=== PATIENT | male | born 1990 | race Caucasian/White ===

== ENCOUNTER 2022-08-16 17:54 | Emergency (ER) | payer MEDICAID, SELFPAY ==
[2022-08-16 18:00] VITALS: BP 141/97; PULSE 106; RESP 16; TEMP 36.6; O2SAT 96; BMI 33.2
--- NOTE | 2022-08-16 18:28 | CRLHL7_ITS ---
For Patients: As a result of the Century Cures Act, medical imaging exams and procedure reports are released immediately into your electronic medical record. You may view this report before your referring provider. If you have questions, please contact your health care provider. INDICATION: Abdominal and left flank pain. TECHNIQUE: CT abdomen and pelvis acquired with intravenous contrast, 100 mL of Isovue 370. Coronal and sagittal reformats. COMPARISON: None available. FINDINGS: The imaged lower chest demonstrates a small-moderate hiatal hernia. Normal liver contour. No suspicious hepatic lesion. Portal vein is patent. No biliary dilatation. The gallbladder, pancreas, spleen, and adrenals are unremarkable. Symmetric renal enhancement. No hydronephrosis bilaterally. Unremarkable bladder and prostate. The bowel appears normal in caliber and enhancement diffusely. No free air, free fluid, focal collection, or lymphadenopathy. Normal caliber abdominal aorta. Major branch vessels patent. No suspicious osseous lesion. IMPRESSION: No acute findings or CT correlate for abdominal pain identified. Dictated by Misha Carpio MD @ 08/16/2022 7:03:05 PM Please note that all CT scans at this facility use dose modulation, iterative reconstruction, and/or weight-based dosing when appropriate to reduce radiation dose to as low as reasonably achievable. Dictated by: Misha Carpio MD @ 08/16/2022 19:03:09 (Electronically Signed)
--- NOTE | 2022-08-16 18:29 | ED_ITS ---
HPI - Abdominal Pain General Chief Complaint: Abdominal Pain Stated Complaint: Constipation,Flank Throbbing Pain,Xray show backup Time Seen by Provider: 08/16/22 18:08 History of Present Illness HPI narrative: This 32-year-old male comes in with abdominal pain that started almost a week ago. He states that the pain has been coming and going for the most part but sometimes is rather constant over the course of a day or more. Earlier today he had very intense pain and now currently he is pain is quite minimal. He does not report any fevers. He was in he stings for an evaluation of these same symptoms a couple days ago. He had a x-ray of his abdomen and lab work done. He started taking MiraLax cause there was evidence of constipation. He states that he has been having some small bowel movements but continues to have episodes of pain is just now described. Related Data Home Medications Medication Instructions Recorded Confirmed Miralax 08/16/22 Prilosec 08/16/22 Allergies Allergy/AdvReac Type Severity Reaction Status Date / Time No Known Drug Allergies Allergy Verified 08/16/22 18:40 Review of Systems Status of ROS Reports: 10 or more systems reviewed and unremarkable except as noted in History and below Narrative Constitutional: No fevers, no weight gain or loss. Eyes: No discharge. No vision changes. HENT: No congestion, no sore throat, no ear pain. Cardiovascular: No chest pain, no palpitations. Respiratory: No shortness of breath, no wheezes, no cough. Gastrointestinal: Diffuse abdominal pain. No vomiting or diarrhea. He reports constipation and states that he may have generalized constipation for the most part over much of his life. Genitourinary: No dysuria, no hematuria. Musculoskeletal: Normal range of motion. Skin: No rashes, no pruritis. Neurological: No dizziness, weakness, sensory change, speech change. Endo/Heme/Allergies: No bruising or bleeding. No polydipsia. Pysch: no suicidality, no anxiety, no insomnia. All other systems reviewed and are negative. PFSH PFS Social History Smoking Status: Former smoker How often do you have a drink containing alcohol: 4 or more times a week How many standard drinks containing alcohol do you have on a typical day: 3 or 4 How often do you have six or more drinks on one occasion: Daily or almost daily AUDIT-C Alcohol total score: 9 Non-prescribed substance use: denies use Exam Narrative: Exam Narrative: Constitutional: Well-developed, well-nourished, no acute distress. HEENT: Normocephalic, atraumatic. Neck: Normal range of motion. Nontender. Supple. Heart: Regular. No murmurs. Normal rate. Intact distal pulses. Lungs: Clear to auscultation. No chest discomfort. No wheezes, rhonchi, or rales. Abdomen: Normal bowel sounds. Mild diffuse tenderness. No rebound tenderness. Genitalia: Deferred. Back: No midline tenderness. Normal range of motion. Extremities: Normal range of motion. No injury. Skin: Intact. No rash. Warm. No erythema or pallor. Neurologic: No altered sensation. No weakness. Alert and oriented. Psychiatric: No suicidality. No anxiety or depression. No insomnia. Nursing notes and vitals signs are reviewed. Const: Vital Signs, click to edit/add: Vital Signs - 24 hr 08/16/22 18:00 Temperature 97.9 F Pulse Rate [Left P ulse Oximeter] 106 H Respiratory Rate 16 Blood Pressure [Ri ght Upper Arm] 141/97 H Pulse Oximetry 96 Oxygen Delivery Me thod Room Air Course Vital Signs Vital signs: Initial Vital Signs Temperature 97.9 F 08/16/22 18:00 Temperature Source Temporal Artery Scan 08/16/22 18:00 Pulse Rate 106 H 08/16/22 18:00 Respiratory Rate 16 08/16/22 18:00 Blood Pressure 141/97 H 08/16/22 18:00 Blood Pressure Mean 111 08/16/22 18:00 Blood Pressure Position Supine 08/16/22 18:00 Pulse Oximetry 96 08/16/22 18:00 Oxygen Delivery Method 08/16/22 18:00 Vital Signs Temperature 97.9 F 08/16/22 18:00 Pulse Rate 106 H 08/16/22 18:00 Respiratory Rate 16 08/16/22 18:00 Blood Pressure 141/97 H 08/16/22 18:00 Pulse Oximetry 96 08/16/22 18:00 Oxygen Delivery Method 08/16/22 18:00 Temperature 97.9 F 08/16/22 18:00 Pulse Rate 106 H 08/16/22 18:00 Respiratory Rate 16 08/16/22 18:00 Blood Pressure 141/97 H 08/16/22 18:00 Pulse Oximetry 96 08/16/22 18:00 Oxygen Delivery Method 08/16/22 18:00 MDM - Abdominal Pain MDM Narrative Medical decision making narrative: This patient comes in with episodes of rather intense abdominal pain but sometimes also no pain at all. He was told a couple days ago that he had constipation. He comes in here with recurrent sometimes severe pain but currently does not have any pain. A CT scan of the abdomen and pelvis is acquired which shows no acute findings. He does not have any particular findings of constipation incidentally. Lab results also returned with reassuring results. These are communicated with the patient who is himself reassured. He is taking Prilosec daily. I advised him to use fiber additive. I did also provide a prescription for Toradol. Lab Data Labs: Lab Results 08/16/22 08/16/22 Range/Units 18:39 18:39 WBC 11.79 H (4.50-11.00) K/uL RBC 4.95 (4.30-5.90) m/uL Hgb 14.9 (13.5-17.5) gm/dL Hct 43.4 (37.0-53.0) % MCV 88 (80-100) fL MCH 30 (26-34) pg MCHC 34 (32-36) gm/dL RDW Coeff of Jennifer 11.6 (11.5-15.5) % Plt Count 330 (140-440) K/uL Neut % (Auto) 75.3 H (42.0-72.0) % Lymph % (Auto) 17.6 L (20-44) % [place] % (Auto) 6.1 (0.0-11.0) % Eos % (Auto) 0.4 (0.0-7.0) % Baso % (Auto) 0.3 (0.0-3.0) % Neut # (Auto) 8.90 H (1.7-7.0) K/uL Lymph # (Auto) 2.10 (0.90-2.90) K/uL [place] # (Auto) 0.70 (0.00-0.90) K/UL Eos # (Auto) 0.00 (0.00-0.50) K/uL Baso # (Auto) 0.00 (0.00-0.30) K/uL Abs Immat Gran (auto) 0.00 (0.00-0.30) K/uL Imm/Tot Granulo (auto) 0.3 % Sodium 141 (135-149) mmol/L Potassium 3.8 (3.6-5.1) mmol/L Chloride 103 (96-114) mmol/L Carbon Dioxide 28 (20-32) mmol/L BUN 23 (5-24) mg/dL Creatinine 1.0 (0.5-1.5) mg/dL Estimated Creat Clear 97.31 Estimated GFR 101 ml/min Glucose 90 (60-115) mg/dL Calcium 9.3 (8.4-10.6) mg/dL Imaging Data CT scan - abdomen: Radiologist's impression: FINDINGS: The imaged lower chest demonstrates a small-moderate hiatal hernia. Normal liver contour. No suspicious hepatic lesion. Portal vein is patent. No biliary dilatation. The gallbladder, pancreas, spleen, and adrenals are unremarkable. Symmetric renal enhancement. No hydronephrosis bilaterally. Unremarkable bladder and prostate. The bowel appears normal in caliber and enhancement diffusely. No free air, free fluid, focal collection, or lymphadenopathy. Normal caliber abdominal aorta. Major branch vessels patent. No suspicious osseous lesion. IMPRESSION: No acute findings or CT correlate for abdominal pain identified. Discharge Plan Discharge Clinical Impression: Abdominal pain Patient Disposition: Home, Self-Care Condition: Stable Additional Instructions: Take medication as needed and indicated. Follow up with MD or return if worsening. Prescriptions: No Action Prilosec Miralax Follow Up/Referrals: Provider,Not a Local [Primary Care Provider] - Stand Alone Forms: [employer] Info Instructions
[2022-08-16 18:49] LABS: Basophils Percent Auto 0.3 % (0.0-3.0); Eosinophils Percent Auto 0.4 % (0.0-7.0); Hematocrit 43.4 % (37.0-53.0); Hemoglobin* 14.9 gm/dL (13.5-17.5); Immature Granulocytes Pct Auto 0.3 %; Lymphocytes Percent Auto 17.6 % (20-44); Mean Corpuscular HGB Conc 34 gm/dL (32-36); Mean Corpuscular Hemoglobin 30 pg (26-34); Mean Corpuscular Volume 88 fL (80-100); Monocytes Percent Auto 6.1 % (0.0-11.0); Neutrophils Percent Auto 75.3 % (42.0-72.0); Platelet Count* 330 K/uL (140-440); RDW Coefficient of Variation % 11.6 % (11.5-15.5); Red Blood Count 4.95 m/uL (4.30-5.90); White Blood Count* 11.79 K/uL (4.50-11.00)
[2022-08-16 18:56] LABS: Slide Review Reflex No
[2022-08-16 19:02] LABS: Chloride* 103 mmol/L (96-114); Potassium* 3.8 mmol/L (3.6-5.1); Sodium* 141 mmol/L (135-149)
[2022-08-16 19:05] LABS: Blood Urea Nitrogen* 23 mg/dL (5-24); Carbon Dioxide* 28 mmol/L (20-32); Est. Creatinine Clearance* 97.31; Estimated Glomerular Filt Rate 101 ml/min
[2022-08-16 19:06] LABS: Calcium* 9.3 mg/dL (8.4-10.6); Glucose* 90 mg/dL (60-115)
== END 2022-08-16 19:48 | disposition home or self-care (01) ==
PROVIDERS: Emergency Provider Emergency Medicine Emergency Medical Services
DX: R10.9 Unspecified abdominal pain (principal)
CPT/HCPCS: 36415; 74177; 80048; 85025; 99284; 99285; Q9967

== ENCOUNTER 2022-11-26 10:36 | Emergency (ER) | payer MEDICAID, SELFPAY ==
[2022-11-26 10:53] VITALS: BP 136/81; PULSE 120; RESP 18; TEMP 36.3; O2SAT 96; BMI 32.9
--- NOTE | 2022-11-26 12:12 | ED_ITS ---
HPI - General Adult General Chief complaint: Unspecified Complaint, Adult Stated complaint: L side face swollen Time Seen by Provider: 11/26/22 10:55 History of Present Illness HPI narrative: This 32-year-old male comes in reporting some altered sensation on the left side of his head and face after exercising today. He states that he ran 5 miles on the treadmill and then looked in the mirror afterwards in it seemed like the left side of his face was a bit swollen and more red than the right side. He also felt some funny sensation on the left side of the top part of his head. These symptoms have since resolved. He states that he made significant changes in his lifestyle 11 days ago. He recently got out of what he calls a toxic relationship and now has quit taking marijuana, quit alcohol, and quit using caffeine. 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 He does not report any visual changes but does have some floaters on occasion in his visual field. He does not have any exercise intolerance and otherwise is healthy. He states that he has noticed that his blood pressure has normalized since making these changes. Related Data Home Medications Medication Instructions Recorded Confirmed Prilosec 08/16/22 Allergies Allergy/AdvReac Type Severity Reaction Status Date / Time No Known Drug Allergies Allergy Verified 08/16/22 18:40 Review of Systems Status of ROS: Reports: 10 or more systems reviewed and unremarkable except as noted in History and below Narrative: Constitutional: No fevers, no weight gain or loss. Eyes: No discharge. No vision changes. HENT: No congestion, no sore throat, no ear pain. Cardiovascular: No chest pain, no palpitations. Respiratory: No shortness of breath, no wheezes, no cough. Gastrointestinal: No abdominal pain, no vomiting, no diarrhea. Genitourinary: No dysuria, no hematuria. Musculoskeletal: Normal range of motion. Skin: No rashes, no pruritis. Neurological: No dizziness, weakness, speech change. Temporary sensory changes on the left side of his face and head as described above. Endo/Heme/Allergies: No bruising or bleeding. No polydipsia. Pysch: no suicidality, no anxiety, no insomnia. All other systems reviewed and are negative. PFSH PFS Social History Smoking Status: Former smoker How often do you have a drink containing alcohol: 4 or more times a week How many standard drinks containing alcohol do you have on a typical day: 3 or 4 How often do you have six or more drinks on one occasion: Daily or almost daily AUDIT-C Alcohol total score: 9 Non-prescribed substance use: denies use Exam Narrative: Exam Narrative: Constitutional: Well-developed, well-nourished, no acute distress. HEENT: Normocephalic, atraumatic. Neck: Normal range of motion. Nontender. Supple. Heart: Regular. No murmurs. Normal rate. Intact distal pulses. Lungs: Clear to auscultation. No chest discomfort. No wheezes, rhonchi, or rales. Abdomen: Normal bowel sounds. Nontender. No rebound tenderness. Genitalia: Deferred. Back: No midline tenderness. Normal range of motion. Extremities: Normal range of motion. No injury. Skin: Intact. No rash. Warm. No erythema or pallor. Neurologic: No altered sensation. No weakness. Alert and oriented. No facial asymmetry. Tongue is midline. Dye Mixer strength is equal bilaterally. [id number] is normal. No pronator drift. Heel to cardenas is normal. Psychiatric: No suicidality. No anxiety or depression. No insomnia. Nursing notes and vitals signs are reviewed. Const: Vital Signs, click to edit/add: Vital Signs - 24 hr 11/26/22 10:53 Temperature 97.4 F L Pulse Rate [Right Pulse Oximeter] 120 H Respiratory Rate 18 Blood Pressure [Ri ght Upper Arm] 136/81 Pulse Oximetry 96 Oxygen Delivery Me thod Room Air Course Vital Signs Vital signs: Initial Vital Signs Temperature 97.4 F L 11/26/22 10:53 Temperature Source Temporal Artery Scan 11/26/22 10:53 Pulse Rate 120 H 11/26/22 10:53 Respiratory Rate 18 11/26/22 10:53 Blood Pressure 136/81 11/26/22 10:53 Blood Pressure Mean 99 11/26/22 10:53 Blood Pressure Position Sitting 11/26/22 10:53 Pulse Oximetry 96 11/26/22 10:53 Oxygen Delivery Method Room Air 11/26/22 10:53 Vital Signs Temperature 97.4 F L 11/26/22 10:53 Pulse Rate 120 H 11/26/22 10:53 Respiratory Rate 18 11/26/22 10:53 Blood Pressure 136/81 11/26/22 10:53 Pulse Oximetry 96 11/26/22 10:53 Oxygen Delivery Method Room Air 11/26/22 10:53 Temperature 97.4 F L 11/26/22 10:53 Pulse Rate 120 H 11/26/22 10:53 Respiratory Rate 18 11/26/22 10:53 Blood Pressure 136/81 11/26/22 10:53 Pulse Oximetry 96 11/26/22 10:53 Oxygen Delivery Method Room Air 11/26/22 10:53 Medical Decision Making MDM Narrative Medical decision making narrative: This patient arrives with concern about some temporary symptoms he encountered today. He does state that he has some anxiety regarding this and would prefer a CT scan of his head. It is reassuring with regard to his exam and vital signs. He did have initial tachycardia upon arrival but this is normalized. His neurologic exam is completely normal. CT imaging of his brain shows no acute findings. These are reassuring results for the patient. I encouraged him to continue with his lifestyle changes that are already starting to benefit him. It could be that he is having some symptoms with regard to those adjustments. At the time of discharge the patient appears safe for outpatient management. The treatment plan is reviewed along with written and verbal return precautions. Reasons to return and the importance of close followup were also reviewed. Imaging Data CT scan - head: Radiologist's impression: Unremarkable noncontrast head CT. Discharge Plan Discharge Clinical Impression: Paresthesias Patient Disposition: Home, Self-Care Condition: Stable Additional Instructions: Continue current plans. Use [id number] medicines as needed and directed. Follow up with MD or return if worsening. [facility]Referrals: Provider,Not a Local [Primary Care Provider] - Stand Alone Forms: [employer] Info Instructions
--- NOTE | 2022-11-26 12:12 | CRLHL7_ITS ---
For Patients: As a result of the Century Cures Act, medical imaging exams and procedure reports are released immediately into your electronic medical record. You may view this report before your referring provider. If you have questions, please contact your health care provider. INDICATION: Paresthesias TECHNIQUE: CT head without contrast. COMPARISON: None FINDINGS: CSF spaces: Within normal limits for age. Brain parenchyma: The cabello-white differentiation is normal. No sign of mass, hemorrhage, or midline shift. Skull base and calvarium: Bilateral maxillary sinus mucosal thickening. The visualized orbits are grossly unremarkable. No skull fractures. IMPRESSION: Unremarkable noncontrast head CT. Please note that all CT scans at this facility use dose modulation, iterative reconstruction, and/or weight-based dosing when appropriate to reduce radiation dose to as low as reasonably achievable. Dictated by Agustín Aparicio MD @ 11/26/2022 12:40:00 PM (Electronically Signed)
== END 2022-11-26 13:00 | disposition home or self-care (01) ==
PROVIDERS: Emergency Provider Emergency Medicine Emergency Medical Services
DX: R20.2 Paresthesia of skin (principal)
CPT/HCPCS: 70450; 99283; 99284

== ENCOUNTER 2022-12-09 01:53 | Emergency (ER) | payer MEDICAID, SELFPAY ==
[2022-12-09 02:00] VITALS: BP 142/96; PULSE 97; RESP 18; TEMP 36.6; O2SAT 98; BMI 32.9
[2022-12-09 02:19] VITALS: O2SAT 96
--- OUTSIDE RECORDS SUMMARY | 2022-12-09 02:25 | XMS_ITS | Continuity of Care Document ---
Author Name Unknown Organization [facility] Address [address] [address] [place] [address] Phone Care Team Providers Care Plastic Surgery Assistant Name Role Phone Chai HERNADEZ, Effie Unavailable Unavailable Allergies, Adverse Reactions, Alerts Substance Reaction Status Criticality No Known Allergies Active No Inform ation Medications Medication Instructions Dosage Effective Dates (start - stop) Status Comments Aleve 220 mg tablet take 2 Tablet by ora l route every 12 hours as needed 440 MG - Active Prilosec 20 mg capsule,delayed release take 2 capsule by oral route every day 30 minutes to 1 hour before a meal 40 MG - Active omeprazole 40 mg capsule,delayed release take 1 capsule by oral route 2 times every day before a meal 40 MG - Active Procedures Procedure Date Ugi Endo; Dx W/wo Collec Specm 17 Advance Directives Directive Yes / No Effective Date File Name No Information Encounters Encounter Description Practice Location Reason(s) For Visit Diagnoses Date Provider Providers Copied on Encounter [facility], [address] [address], [place], [place], [id number], [place] tel:[phone] [facility] Gastroesophageal reflux disease without esophagitisHiatal herniaGastro-esop hageal reflux disease without esophagitisDiaphr agmatic hernia without obstruction or gangrene 0 7 Chai Chou. [address] [facility], [facility] [address], [place], [place], [id number] , [place]. tel:[phone] Referring Provider: [place], [address] [place], [address]. tel:[phone] Family History Family Member Type Diagnosis Age At Onset No Information Payers Payer name Insurance type Covered alliance party ID Kath santiago(s) [place] [employer] [id number] Social History Type Description Quantity Date Captured Comments Alcohol Use Details Unknown Caffeine Use Details Unknown Tobacco Use Status No Information Smoking Status Light tobacco smoker Sex Male Vital Signs Date / Time: Height Weight BMI Pulse Rate Blood Pressure Temperature Respiratory Rate Body Surface Area Head Circumference Head Circ. Percentile Wt./Kimani. Percentile BMI percentile Pulse Ox Inhaled Ox 8:33 AM 66.00 in 94.330 kg (208.00 lbs) 33.6 0 kg/m eter (2) 79 /min 140/88 mm[Hg] 0.00 F 16 /min 97 % Chief Complaint And Reason For Visit No Information Reason For Referral Reason For Referral No Information Plan Of Treatment Date Type Action Status No Information History Of Present Illness Encounter Date Complaint History Of Prese nt Illness No Information Functional Status Date Functional Assessmen t No Information Instructions Date Instruction Additional Infor mation No Information Assessments Type Assessment Date assessment Gastroesophageal reflux disease without esophagitis Patient Care Teams Name Effective Dates (start - stop) Status Members No Information
[2022-12-09 02:32] LABS: Basophils Absolute Auto 0.01 K/uL (0.00-0.30); Basophils Percent Auto 0.2 % (0.0-3.0); Eosinophils Absolute Auto 0.11 K/uL (0.00-0.50); Eosinophils Percent Auto 1.9 % (0.0-7.0); Hematocrit 42.8 % (37.0-53.0); Hemoglobin* 14.6 gm/dL (13.5-17.5); Immature Granulocytes Abs Auto 0.04 K/uL (0.00-0.30); Immature Granulocytes Pct Auto 0.7 %; Lymphocytes Absolute Auto 1.87 K/uL (0.90-2.90); Lymphocytes Percent Auto 32.9 % (20-44); Mean Corpuscular HGB Conc 34 gm/dL (32-36); Mean Corpuscular Hemoglobin 30 pg (26-34); Mean Corpuscular Volume 89 fL (80-100); Monocytes Percent Auto 11.3 % (0.0-11.0); Neutrophils Absolute Auto 3.01 K/uL (1.7-7.0); Platelet Count* 268 K/uL (140-440); RDW Coefficient of Variation % 12.1 % (11.5-15.5); Red Blood Count 4.83 m/uL (4.30-5.90); White Blood Count* 5.68 K/uL (4.50-11.00)
[2022-12-09 02:34] LABS: Slide Review Reflex No
--- NOTE | 2022-12-09 02:36 | ED.GENADULT ---
HPI - General Adult General Date Seen: 12/09/22 Chief complaint: Arrhythmia/Palpitations Stated complaint: High BP Time Seen by Provider: 12/09/22 01:59 Source: patient Mode of arrival: ambulatory Limitations: no limitations History of Present Illness HPI narrative: Patient is a 32-year-old male who presents for evaluation of palpitations. He says that he was laying in bed when he felt like his heart started to race. He says he checked his pulse and it was over 100. He says that he felt he could see his pulse in his neck. Symptoms persisted through the drive to the ER but now seem to be resolved. He denies any stimulant use, says that he quit drinking a few weeks ago due to GI symptoms but has over the past week had alcohol couple of times including tonight. He does not smoke, denies any other substance use. He did not have any chest pain tonight, does say that his left arm felt sort of tingly on the drive in but he does boxing and he says that is not unusual for him. He felt a little lightheaded at home, no syncope. No shortness of breath. No other recent illness, no vomiting or diarrhea, black or bloody stools, fevers, etc.. General health is otherwise good. He has been told that his blood pressure is on the high side for several years. Related Data Home Medications Medication Instructions Recorded Confirmed Prilosec 08/16/22 omeprazole .ROUTE 12/09/22 Allergies Allergy/AdvReac Type Severity Reaction Status Date / Time No Known Drug Allergies Allergy Verified 08/16/22 18:40 Review of Systems Status of ROS: Reports: 10 or more systems reviewed and unremarkable except as noted in History and below PFSH PFS Surgical History Hx of laminectomy ?Z98.890 - Other specified postprocedural states (ICD-10) Social History Smoking Status: Former smoker How often do you have a drink containing alcohol: 4 or more times a week How many standard drinks containing alcohol do you have on a typical day: 3 or 4 How often do you have six or more drinks on one occasion: Daily or almost daily AUDIT-C Alcohol total score: 9 Non-prescribed substance use: denies use Exam Narrative: Exam Narrative: Vital signs as noted above. In general, an alert, well-appearing patient. Head: Normocephalic, atraumatic. Eyes: Pupils are equal reactive. Extraocular movements are full. Conjunctivae are normal. ENT: Mucous membranes are moist. Throat is normal. Neck: Supple without lymphadenopathy. Heart: Regular rate and rhythm. No murmur or rub. Lungs: Clear bilaterally. No increased work of breathing, crackles or wheezes. Abdomen: Soft and nontender. No organomegaly. Extremities: Well perfused. No edema. No calf tenderness. Pulses intact. Neurologic: Patient is alert and oriented to person and place. Speech is fluent. Face is symmetric. Moves all extremities equally. Affect: Normal. Skin: Warm and dry. Well perfused. Const: Vital Signs, click to edit/add: Vital Signs - 24 hr 12/09/22 02:00 12/09/22 02:19 Temperature 97.9 F Pulse Rate [Left P ulse Oximeter] 97 Respiratory Rate 18 Blood Pressure [Ri ght Upper Arm] 142/96 H Pulse Oximetry 98 96 Oxygen Delivery Me thod Room Air Documenting provider has reviewed patient's vital signs: yes Course Course Hospital Course: An EKG here shows a normal sinus rhythm, ventricular rate of 78 beats per minute. No acute ST segment changes. QT corrected is 426 milliseconds, AR is 184 milliseconds and there are no delta waves. He is maintained on the monitor here. Discussed with him that it is possible that he could have had an arrhythmia such as SVT or less likely atrial fibrillation at home, but it is also possible and I think more likely that he had sinus tachycardia, with possibly contributing some anxiety as he notes that he does tend to be a ?hypochondriac. In any case, there is no evidence of tachyarrhythmia here. I did check a couple of baseline labs, his white blood cell count is normal at 5.7, hemoglobin is 14.6. Electrolytes are normal, troponin is 0. He has remained in a normal sinus rhythm while here, feeling well at this time. We did place a Holter monitor, I have asked him to make a primary care appointment to follow up on those results. In the meantime, if he has severe symptoms, pulse greater than 140, fainting, severe chest pain or shortness of breath, return to the emergency department. Vital Signs Vital signs: Initial Vital Signs Temperature 97.9 F 12/09/22 02:00 Temperature Source Temporal Artery Scan 12/09/22 02:00 Pulse Rate 97 12/09/22 02:00 Respiratory Rate 18 12/09/22 02:00 Blood Pressure 142/96 H 12/09/22 02:00 Blood Pressure Mean 111 12/09/22 02:00 Blood Pressure Position Sitting 12/09/22 02:00 Pulse Oximetry 98 12/09/22 02:00 Oxygen Delivery Method Room Air 12/09/22 02:00 Vital Signs Temperature 97.9 F 12/09/22 02:00 Pulse Rate 97 12/09/22 02:00 Respiratory Rate 18 12/09/22 02:00 Blood Pressure 142/96 H 12/09/22 02:00 Pulse Oximetry 98 12/09/22 02:00 Oxygen Delivery Method Room Air 12/09/22 02:00 Temperature 97.9 F 12/09/22 02:00 Pulse Rate 97 12/09/22 02:00 Respiratory Rate 18 12/09/22 02:00 Blood Pressure 142/96 H 12/09/22 02:00 Pulse Oximetry 96 12/09/22 02:19 Oxygen Delivery Method Room Air 12/09/22 02:00 Medical Decision Making Lab Data Labs: Lab Results 12/09/22 12/09/22 Range/Units 02:25 02:26 WBC 5.68 (4.50-11.00) K/uL RBC 4.83 (4.30-5.90) m/uL Hgb 14.6 (13.5-17.5) gm/dL Hct 42.8 (37.0-53.0) % MCV 89 (80-100) fL MCH 30 (26-34) pg MCHC 34 (32-36) gm/dL RDW Coeff of Jennifer 12.1 (11.5-15.5) % Plt Count 268 (140-440) K/uL Neut % (Auto) 53.0 (42.0-72.0) % Lymph % (Auto) 32.9 (20-44) % [place] % (Auto) 11.3 H (0.0-11.0) % Eos % (Auto) 1.9 (0.0-7.0) % Baso % (Auto) 0.2 (0.0-3.0) % Neut # (Auto) 3.01 (1.7-7.0) K/uL Lymph # (Auto) 1.87 (0.90-2.90) K/uL [place] # (Auto) 0.60 (0.00-0.90) K/UL Eos # (Auto) 0.11 (0.00-0.50) K/uL Baso # (Auto) 0.01 (0.00-0.30) K/uL Sodium 142 (135-149) mmol/L Potassium 3.9 (3.6-5.1) mmol/L Chloride 105 (96-114) mmol/L Carbon Dioxide 29 (20-32) mmol/L BUN 18 (5-24) mg/dL Creatinine 0.8 (0.5-1.5) mg/dL Estimated Creat Clear 121.64 Estimated GFR 119 ml/min Glucose 107 (60-115) mg/dL Calcium 9.1 (8.4-10.6) mg/dL POC Troponin I 0.00 L (0.01-0.04) ng/ml Discharge Plan Discharge Clinical Impression: Palpitations Patient Disposition: Home, Self-Care Condition: Improved Instructions: Heart Palpitations (DC) Additional Instructions: Holter monitor, primary care follow-up next week to discuss results. [phone] to schedule. If you have severe symptoms, fainting, heart rate over 140, chest pain, shortness of breath etcetera, return for re-evaluation. Prescriptions: No Action Prilosec omeprazole .ROUTE Follow Up/Referrals: Provider,Not a Local [Primary Care Provider] - Stand Alone Forms: [facility] Info Instructions
[2022-12-09 02:43] LABS: Chloride* 105 mmol/L (96-114); Sodium* 142 mmol/L (135-149)
[2022-12-09 02:44] LABS: Potassium* 3.9 mmol/L (3.6-5.1)
[2022-12-09 02:46] LABS: Carbon Dioxide* 29 mmol/L (20-32); Creatinine* 0.8 mg/dL (0.5-1.5); Est. Creatinine Clearance* 121.64; Estimated Glomerular Filt Rate 119 ml/min
[2022-12-09 02:47] LABS: Blood Urea Nitrogen* 18 mg/dL (5-24); Calcium* 9.1 mg/dL (8.4-10.6); Glucose* 107 mg/dL (60-115)
[2022-12-09 03:18] VITALS: BP 133/88; PULSE 77; RESP 18; O2SAT 97
--- NOTE | 2023-02-03 08:40 | ED.NURSE ---
Dr. Huber reviewed results and states results are normal. Contacted patient to review results. Pt instructed to establish primary care. Pt verbalizes understanding of need to establish primary care and given [facility] phone number.
== END 2022-12-09 03:19 | disposition home or self-care (01) ==
PROVIDERS: Emergency Provider Emergency Medicine
DX: R00.2 Palpitations (principal)
CPT/HCPCS: 36415; 80048; 84484; 85025; 93005; 93225; 93226; 94761; 99284

== ENCOUNTER 2023-05-27 16:25 | Emergency (ER) | payer MEDICAID, SELFPAY ==
[2023-05-27 16:30] VITALS: BP 131/94; PULSE 100; RESP 12; TEMP 36.1; O2SAT 96; BMI 31.6
--- NOTE | 2023-05-27 16:58 | ED.GENADULT ---
HPI - General Adult General Date Seen: 05/27/23 Chief complaint: Back Injury/Pain Stated complaint: back pain Time Seen by Provider: 05/27/23 16:42 Source: patient Mode of arrival: ambulatory Limitations: no limitations History of Present Illness HPI narrative: Patient is a 32-year-old male who presents with right periscapular pain which started about 45 minutes ago when he was at [employer] and twisted wrong. He has had pain in this area for quite some time, he tells me that he takes ibuprofen and muscle relaxers as needed, he says he has to had massages 3 times a week and goes to a chiropractor 2 times a week, but is here because he wants to get to the bottom of what is causing his pain. He says he had an MRI scheduled while back but then did not go, he was hoping we could do an MRI today. He does not have radicular pain. It feels better when he stretches it out, it feels worse with certain movements of his arm as well as with taking a deep breath although he is not short of breath and denies fever cough. He does have a history of depression anxiety, there is the history of substance abuse mentioned in the chart although he is quick to tell me that he is not a ?junkie and is not interested in pain medications. He is a former smoker, does not currently use any substances. Related Data Home Medications Medication Instructions Recorded Confirmed cyclobenzaprine 5 mg tablet 10 mg PO HS PRN 05/27/23 05/27/23 omeprazole 20 mg capsule,delayed 20 mg PO DAILY 05/27/23 05/27/23 release Allergies Allergy/AdvReac Type Severity Reaction Status Date / Time No Known Drug Allergies Allergy Verified 05/27/23 16:29 Review of Systems Status of ROS: Reports: 6 or more systems reviewed and unremarkable except as noted in History and below [facility] Medical History No significant past medical history Surgical History Hx of laminectomy ?Z98.890 - Other specified postprocedural states (ICD-10) Social History Smoking Status: Former smoker How often do you have a drink containing alcohol: 4 or more times a week How many standard drinks containing alcohol do you have on a typical day: 3 or 4 How often do you have six or more drinks on one occasion: Daily or almost daily AUDIT-C Alcohol total score: 9 Non-prescribed substance use: former substance user and marijuana (any form) Little interest or pleasure in doing things: more than half the days Feeling down, depressed, or hopeless: several days Exam Narrative: Exam Narrative: Vital signs reviewed In general, an alert, well-appearing male, he was stretching his right arm across his body when I went into the room, pacing. Normocephalic, atraumatic. Neck: Supple. Heart: Regular rate and rhythm Lungs: Clear, breath sounds equal. Back: He has some reproducible muscle tenderness along the edge of his scapula on the right. New line skin: Warm dry well perfused. Affect: Agitated. Const: Vital Signs, click to edit/add: Vital Signs - 24 hr 05/27/23 16:30 Temperature 97.0 F L Pulse Rate [Pulse Oximeter] 100 Respiratory Rate 12 Blood Pressure [Ri ght Upper Arm] 131/94 H Pulse Oximetry 96 Oxygen Delivery Me thod Room Air Documenting provider has reviewed patient's vital signs: yes Course Course ED Course: Given that this has been present for quite some time and is exacerbated today, I think this is much more likely to be musculoskeletal. Did discuss with him that we typically do not do MRI out of the ER for back pain and as he arrived at close to 5:00 p.m., discussed that we do not even have the option of MRI at this hour. He became fairly upset with me and fairly defensive, he seems to think that because I am not doing an MRI I do not believe that he is having symptoms. Tried to reassure him that I do think this is likely more due to muscle spasm than a radicular problem given his presentation, but it sounds as if he was planning to do an MRI through his primary doctor previously and they can certainly get that rescheduled. At 1 point he said he did not have an MRI scheduled and then he also said he has 1 scheduled next so not sure which is accurate. Recommended continued use of ibuprofen and/or Tylenol, cyclobenzaprine, physical therapy or massage may be helpful, ice or heat. Vital Signs Vital signs: Initial Vital Signs Temperature 97.0 F L 05/27/23 16:30 Temperature Source Temporal Artery Scan 05/27/23 16:30 Pulse Rate 100 05/27/23 16:30 Pulse Rhythm Regular 05/27/23 16:30 Respiratory Rate 12 05/27/23 16:30 Blood Pressure 131/94 H 05/27/23 16:30 Blood Pressure Mean 106 H 05/27/23 16:30 Blood Pressure Position Sitting 05/27/23 16:30 Pulse Oximetry 96 05/27/23 16:30 Oxygen Delivery Method Room Air 05/27/23 16:30 Vital Signs Temperature 97.0 F L 05/27/23 16:30 Pulse Rate 100 05/27/23 16:30 Respiratory Rate 12 05/27/23 16:30 Blood Pressure 131/94 H 05/27/23 16:30 Pulse Oximetry 96 05/27/23 16:30 Oxygen Delivery Method Room Air 05/27/23 16:30 Temperature 97.0 F L 05/27/23 16:30 Pulse Rate 100 05/27/23 16:30 Respiratory Rate 12 05/27/23 16:30 Blood Pressure 131/94 H 05/27/23 16:30 Pulse Oximetry 96 05/27/23 16:30 Oxygen Delivery Method Room Air 05/27/23 16:30 Discharge Plan Discharge Clinical Impression: Thoracic back pain Patient Disposition: Home, Self-Care Condition: Stable Instructions: Thoracic Pain (ED) Additional Instructions: I would recommend ibuprofen 400 mg plus Tylenol 1000 mg 3 times daily with food. You can use her muscle relaxer as needed. Physical therapy, massage etc. may be helpful. Ice and/or heat. Primary care follow-up to discuss rescheduling your MRI. Prescriptions: No Action cyclobenzaprine 5 mg tablet 10 mg PO HS PRN omeprazole 20 mg capsule,delayed release(DR/EC) 20 mg PO DAILY Follow Up/Referrals: Provider,Not a Local [Primary Care Provider] - Stand Alone Forms: [facility] Info Instructions
--- NOTE | 2023-05-27 17:16 | ED.NURSE ---
pt left without being seen or being given discharge information. Was unable to assess.
--- OUTSIDE RECORDS SUMMARY | 2023-05-27 17:31 | XMS_ITS | Continuity of Care Document ---
Author Name Unknown Organization [facility] Address [address] [place] [address] Phone Care Team Providers Care Human Resources Representative Name Role Phone Molly HERNADEZ, PhD, Emiliano Unavailable Unavai lable Advance Directives Directive Yes / No Effective Date File Name No Information Encounters Encounter Description Practice Location Reason(s) For Visit Diagnoses Date Provider Providers Copied on Encounter [facility], [address], [place], [place], [id number], [place] tel:[phone] [facility] No Information Molly Cummings. [facility], [address], [place], [address], [place]. tel:[phone] Family History Family Member Type Diagnosis Age At Onset No Information Payers Payer name Insurance type Covered libertarian ID Authoriza tion(s) No Information Social History Type Description Quantity Date Captured Comments Sex Male Smoking Status No Information Chief Complaint And Reason For Visit No Information Reason For Referral Reason For Referral No Information Plan Of Treatment Date Type Action Status Future Order: Radiology Order AP Lateral Cervical (APlatcerv), Ordered on: Ordered Future Order: Radiology Order F/ E Cervical (F/Ecervical), Ordered on: Ordered History Of Present Illness Encounter Date Complaint History Of Prese nt Illness No Information Functional Status Date Functional Assessmen t No Information Instructions Date Instruction Additional Infor mation No Information Assessments Type Assessment Date No Information Patient Care Teams Name Effective Dates (start - stop) Status Members No Information
--- OUTSIDE RECORDS SUMMARY | 2023-05-27 17:31 | XMS_ITS | Continuity of Care Document ---
Author Name Unknown Organization [facility] Address [address] [place] [address] Phone Care Team Providers Care Store Planner Name Role Phone Leonardo Bautista DO Unavailable Unavailable Advance Directives Directive Yes / No Effective Date File Name No Information Encounters Encounter Description Practice Location Reason(s) For Visit Diagnoses Date Provider Providers Copied on Encounter [facility], [address], [place], [address], [place] tel:[phone] [facility], No Information 2 Michele Patterson. [facility] [address], [place], [address], [place]. tel:[phone] Family History Family Member Type Diagnosis Age At Onset No Information Payers Payer name Insurance type Covered democrat ID Authoriza tion(s) No Information Social History Type Description Quantity Date Captured Comments Sex Male Smoking Status No Information Chief Complaint And Reason For Visit No Information Reason For Referral Reason For Referral No Information History Of Present Illness Encounter Date Complaint History Of Prese nt Illness No Information Functional Status Date Functional Assessmen t No Information Instructions Date Instruction Additional Infor mation No Information Assessments Type Assessment Date No Information Patient Care Teams Name Effective Dates (start - stop) Status Members No Information
--- OUTSIDE RECORDS SUMMARY | 2023-05-27 17:31 | XMS_ITS | Continuity of Care Document ---
Author Name Unknown Organization [facility] Address [address] [address] [place] [address] Phone Care Team Providers Care Bistro Server Name Role Phone Chai HERNADEZ, Effie Unavailable [...] Diagnoses Date Provider Providers Copied on Encounter [facility], [address] [address], [place], [place], [id number], [place] tel:[phone] [facility] Gastroesophageal reflux disease without esophagitisHiatal herniaGastro-esop hageal reflux disease without esophagitisDiaphr agmatic hernia without obstruction or gangrene 0 7 Chai Chou. [address] [facility], [facility] [address], [place], [place], [id number] , [place]. tel:[phone] Referring Provider: [place], [address] [place], [address]. tel:[phone] Family History Family Member Type Diagnosis Age At Onset No Information Payers Payer name Insurance type Covered libertarian ID Kath santiago(s) [place] [employer] [id number] Social History Type Description Quantity Date Captured [...]
== END 2023-05-27 17:28 | disposition home or self-care (01) ==
PROVIDERS: Emergency Provider Emergency Medicine
DX: M54.6 Pain in thoracic spine (principal); X50.1XXA Overexertion from prolonged static or awkward postures, initial encounter
CPT/HCPCS: 99283

== ENCOUNTER 2023-10-27 00:19 | Emergency (ER) | payer MEDICAID, SELFPAY ==
--- OUTSIDE RECORDS SUMMARY | 2023-10-27 00:24 | XMS_ITS | Clinical Summary ---
Author Name Unknown Organization [facility] Address [facility] [place] [address] Care Team Providers Care Shuttle Fixer Name Role Phone No Ref-Primary, Physician Primary Care Provider Allergies No known active allergies Medications Medication Sig Dispensed Refills Start Date End Date Status omeprazole (PRILOSEC) [address] capsule Take 40 mg by mouth 0 Active ondansetron (ZOFRAN ODT) 4 MG ODT tab Take 1 tablet (4 mg) by mouth every 6 hours as needed for nausea 15 tablet 0 01/02/2021 Active Active Problems Problem Noted Date Diagnosed Date Psoriatic arthritis 09/07/2019 History of lumbar laminectomy 01/10/2019 Psoriasis 08/10/2018 Immunizations Name Administration Dates Next Due HIB (PRP-T) 12/14/1989 HepB 12/25/1998,07/15/1998,06/03/1998 Historical DTP/aP 05/06/1994,12/14/1989,07/01/19 89,1988 Influenza (IIV3) PF 06/25/1999,07/15/1998,1996,07/20/1996 MMR 08/08/1997,08/23/1989 OPV, trivalent, live 05/06/1994,06/02/1990,07/01,1988 TD,PF 7+ (Tenivac) 06/25/1999 Social History Tobacco Use Types Packs/Day Years Used Date Smoking Tobacco: Former Cigarettes 1 Smokeless Tobacco: Never Alcohol Use Standard Drinks/Week Comments Yes 0 (1 standard drink = 0.6 oz pur e alcohol) PHQ-2 Answer Date Recorded PHQ-2 Score 0 09/07/2019 Adolescent Education Answer Date Record ed Getting School Help Needed Not on file 06/03 Sex and Gender Information Value Date Recorded Sex Assigned at Not on file Gender Identity Not on file Sexual Orientation Not on file Last Filed Vital Signs Vital Sign Reading Time Taken Comments Blood Pressure 152/105 01/02/2021 2:24 AM CDT Pulse 99 01/02/2021 2:24 AM CDT Temperature 36.8 ??C (98.2 ??F) 01/02/2021 2:24 AM CD T Respiratory Rate 16 01/02/2021 2:24 AM CDT Oxygen Saturation 97% 01/02/2021 2:24 AM CDT Inhaled Oxygen Concentration - - Weight 103.9 kg (229 lb 0.9 oz) 01/02/2021 2:24 AM CDT Height 167.6 cm (5' 6) 05/17/2020 2:12 AM CDT Body Mass Index 36.97 05/17/2020 2:12 AM CDT Plan of Treatment Health Maintenance Due Date Last Done Comments ADVANCE CARE PLANNING 1988 ANNUAL REVIEW OF HM ORDERS 1988 COVID-19 Vaccine (#1) 1988 YEARLY PREVENTIVE VISIT 11/14/1998 11/14/1997, 06/10 DTAP/TDAP/TD IMMUNIZATION (5 - Tdap) 06/26/1999 06/25/1999, 05/06/1994, 12/14/1989, Additional history exists HIV SCREENING 2003 HEPATITIS C SCREENING 2006 INFLUENZA VACCINE (#1) 2023 9, 06/25/1999, 07/15/1998, Additional history exists PHQ-2 (once per calendar year) 2023 09/07/2019 GLUCOSE 01/03/2024 01/02/2021, 05/17/2020 IPV IMMUNIZATION Completed 05/06/1994, , 07/01/1989, Additional history exists HEPATITIS B IMMUNIZATION Completed 999, 12/25/1998, 07/15/1998, Additional history exists HPV IMMUNIZATION Aged Out No longer e ligible based on patient's age to complete this topic MENINGITIS IMMUNIZATION Aged Out No l onger eligible based on patient's age to complete this topic Pneumococcal Vaccine: Pediatrics (0 to 5 Years) and At-Risk Patients (6 to 64 Years) Aged Out No longer eligible based on patient's age to complete this topic RSV MONOCLONAL ANTIBODY Aged Out No l onger eligible based on patient's age to complete this topic Care Teams Shuttle Fixer Relationship Specialty Start Date End Date No Ref-Primary, Physician PCP - General 09/05/19
--- OUTSIDE RECORDS SUMMARY | 2023-10-27 00:25 | XMS_ITS | Referral Summary ---
Author Name Unknown Organization [facility] Address [facility] [place] [address] Care Team Providers Care Ribbing Machine Operator Name Role Phone No Ref-Primary, Physician Primary [...] 05/17/2020 2:12 AM CDT Plan of Treatment Not on file Care Teams Ribbing Machine Operator Relationship Specialty Start Date End Date No Ref-Primary, Physician PCP - General 09/05/19
[2023-10-27 00:34] VITALS: BP 153/106; PULSE 101; RESP 20; TEMP 36.6; O2SAT 97; BMI 34.1
--- NOTE | 2023-10-27 00:58 | XR_ITS ---
Final Report Patient: BRENNA TAI Facility:?[facility] Patient ID:?[id number] Site Patient ID:?[id number]. Site :?1990 Study:?XRay Chest 2V-10/27/2023 1:13:04 AM Ordering Physician:HUGO Final Report: Indication: Chest pain, palpitations Technique: Two views of the chest Comparison: None Findings: No organized consolidation. No pneumothorax. No effusion. Cardiac silhouette is unremarkable. No acute osseous abnormality appreciated. site monitor overlies the left chest. Impression: No acute cardiopulmonary process detected. Dictated by Sal Connell MD @ 10/27/2023 1:14:58 AM (Electronic Signature)
--- NOTE | 2023-10-27 01:04 | ED.GENADULT ---
HPI - General Adult General Chief complaint: Chest Pain Stated complaint: Chest pain Time Seen by Provider: 10/27/23 00:36 Source: patient Mode of arrival: ambulatory Limitations: no limitations History of Present Illness HPI narrative: 33-year-old male presents the emergency department for evaluation of palpitations. This is been an ongoing issue for him, for more than a year. Reports that he had a Holter monitor performed last year that was essentially normal per his report though he states that he never got a thorough discussion of the results. He states that he has frequent feelings of a couple of irregular heart, pounding heartbeats at a time. It sounds as though this happened a little more likely in the evenings. He started having a few more than normal of these beats that were more pounding in nature at around 10:30 this evening, which is about 2 hours prior to arrival. No trauma or injury, no fever. Not associated with dizziness or shortness of breath. Events are not sustain but rather a few beats at a time and then will go back to normal and then sounds as though a few abnormal beats again. Denies anxiety. Did have 1 alcoholic beverage tonight. Reports that he does smoke marijuana daily but that is unchanged. He has had no new medications. He has no allergies. No fever or recent significant illness. States that he has had blood work to investigate this in the past that was unrevealing. He recently started seeing a new provider in [place]. Provider recommended that the Holter monitor be repeated and he currently is wearing this now. Blood work was not repeated, it does not sound as though he has ever had a stress test or echo. His symptoms are not exertional. I reviewed our records and see that he had appropriate blood work performed about 10 months ago, all reassuring. EKG was normal at that time and he did have a Holter monitor placed. The interpretation of this shows a few PVCs, very rare supraventricular short complexes but no AFib, significant ventricular ectopy or other abnormalities. It did not appear as though his symptomatic spells on that interpretation correlated with pathology. He states that his past medical history is notable for hypertension, untreated. No allergies. Surgical history notable for a laminectomy at L5/S1. Daily marijuana user, no tobacco products otherwise. ROS is notable for the palpitations symptoms as described above only, otherwise denies times 12 systems. Related Data Home Medications Medication Instructions Recorded Confirmed omeprazole 20 mg capsule,delayed 20 mg PO DAILY 05/27/23 10/27/23 release Allergies Allergy/AdvReac Type Severity Reaction Status Date / Time No Known Drug Allergies Allergy Verified 10/27/23 00:34 [facility] Medical History No significant past medical history Surgical History Hx of laminectomy ?Z98.890 - Other specified postprocedural states (ICD-10) Social History Smoking Status: Former smoker How often do you have a drink containing alcohol: 4 or more times a week How many standard drinks containing alcohol do you have on a typical day: 3 or 4 How often do you have six or more drinks on one occasion: Daily or almost daily AUDIT-C Alcohol total score: 9 Non-prescribed substance use: former substance user and marijuana (any form) Little interest or pleasure in doing things: more than half the days Feeling down, depressed, or hopeless: several days Exam Const: Vital Signs, click to edit/add: Vital Signs - 24 hr 10/27/23 00:34 10/27/23 01:54 Temperature 97.8 F Pulse Rate 94 Pulse Rate [Pulse Oximeter] 101 H Respiratory Rate 20 Blood Pressure [Ri ght Upper Arm] 153/106 H Pulse Oximetry 97 Oxygen Delivery Me thod Room Air Documenting provider has reviewed patient's vital signs: yes Common normals: no apparent distress and alert General appearance: well kempt Other: Mildly anxious but excellent insight. Thought process logical, no signs of intoxication. Cooperative. HENMT: Common normals: normocephalic and oropharynx normal Head and scalp: normocephalic Face and sinus: normal facial exam Eye: Common normals: conjunctivae normal General eye: normal appearance of both eyes Conjunctiva: conjunctiva(e) normal Neck & C-Spine: Common normals: full ROM and no lymphadenopathy Chest: Common normals: inspection of chest normal Resp: Common normals: normal respiratory effort, no use of accessory muscles and clear to auscultation bilaterally Effort & inspection: able to speak in complete sentences Auscultation: clear to auscultation bilaterally Cardio: Common normals: regular rate, regular rhythm, S1 normal heart sound, S2 normal heart sound and no murmurs Rate: regular rate Rhythm: regular rhythm Heart sounds: S1 normal and S2 normal GI: Common normals: Normal to inspection, nondistended, normoactive bowel sounds present, soft to palpation, non-tender, no hepatosplenomegaly and no masses Palpation: soft and no hepatosplenomegaly Extremity: Common normals: normal to inspection, normal capillary refill and no pedal edema Neuro: Sensorium/orientation: alert Speech: speech normal Gait (neuro): normal gait Motor exam: no tremor noted and no movement abnormalities noted Psych: Appearance: well kempt Attitude: engaged Mood and affect: euthymic mood Insight: insight good Judgement: judgment good Skin: Narrative: Plaque psoriasis covering less than 5% body surface area Course Course ED Course: Reported feeling of palpitations with prior essentially normal Holter monitor test. Previous normal blood work though I do not have previous thyroid testing. Differential diagnosis including arrhythmia, PVCs, acute coronary syndrome, pulmonary or esophageal abnormality, musculoskeletal etiology, among others. My strongest suspicion is PVCs. There may be a connection between alcohol use, underlying sleep apnea or other structural heart disease. I recommended a chest x-ray, basic blood work including workup for acute ischemia. EKG is performed and is initially reassuring, will watch on a recoverer to see if we are able to catch those episodes. Anticipate that workup will be normal and he can be discharged for further outpatient follow-up. Initial exam is reassuring. Reevaluation(s) Time of Reevaluation #1: 02:07 Reevaluation #1: Reviewed findings with patient. Chest x-ray normal, EKG reassuring. He has been monitored for about 90 minutes here in the emergency department with no abnormality seen on the recoverer. He did report a few runs of symptomatic beats, just a couple of seconds. These were not correlated with any abnormalities on his rhythm strips. I suspect that he is either having symptomatic gastric reflux disease or esophageal spasm related to reflux. No abnormalities of structural, electrical or coronary artery abnormalities are seen. Patient does report ongoing issues with this despite taking omeprazole. He is counseled that the palpitations do not seem to be related to any dangerous or emergent cause. Rationale discussed and he did seem thankful for the thorough discussion. I have encouraged in person primary care follow-up once the Holter results are available. Alarm symptoms are reviewed that would warrant ED presentation. Okay to continue his omeprazole as prescribed. Vital Signs Vital signs: Initial Vital Signs Temperature 97.8 F 10/27/23 00:34 Temperature Source Temporal Artery Scan 10/27/23 00:34 Pulse Rate 101 H 10/27/23 00:34 Pulse Strength 3+ Normal 10/27/23 00:34 Respiratory Rate 20 10/27/23 00:34 Blood Pressure 153/106 H 10/27/23 00:34 Blood Pressure Mean 121 H 10/27/23 00:34 Blood Pressure Position Sitting 10/27/23 00:34 Pulse Oximetry 97 10/27/23 00:34 Oxygen Delivery Method Room Air 10/27/23 00:34 Vital Signs Temperature 97.8 F 10/27/23 00:34 Pulse Rate 101 H 10/27/23 00:34 Respiratory Rate 20 10/27/23 00:34 Blood Pressure 153/106 H 10/27/23 00:34 Pulse Oximetry 97 10/27/23 00:34 Oxygen Delivery Method Room Air 10/27/23 00:34 Temperature 97.8 F 10/27/23 00:34 Pulse Rate 94 10/27/23 01:54 Respiratory Rate 20 10/27/23 00:34 Blood Pressure 153/106 H 10/27/23 00:34 Pulse Oximetry 97 10/27/23 00:34 Oxygen Delivery Method Room Air 10/27/23 00:34 Medical Decision Making Lab Data Lab results reviewed: Yes I reviewed the patient's lab results Lab results narrative: All reassuring. Labs: Lab Results 10/27/23 10/27/23 Range/Units 00:58 01:15 WBC 6.67 (4.50-11.00) K/uL RBC 5.18 (4.30-5.90) m/uL Hgb 15.6 (13.5-17.5) gm/dL Hct 45.5 (37.0-53.0) % MCV 88 (80-100) fL MCH 30 (26-34) pg MCHC 34 (32-36) gm/dL RDW Coeff of Jennifer 11.8 (11.5-15.5) % Plt Count 306 (140-440) K/uL Neut % (Auto) 59.7 (42.0-72.0) % Lymph % (Auto) 30.7 (20-44) % [place] % (Auto) 7.3 (0.0-11.0) % Eos % (Auto) 1.3 (0.0-7.0) % Baso % (Auto) 0.3 (0.0-3.0) % Neut # (Auto) 3.97 (1.7-7.0) K/uL Lymph # (Auto) 2.05 (0.90-2.90) K/uL [place] # (Auto) 0.50 (0.00-0.90) K/UL Eos # (Auto) 0.09 (0.00-0.50) K/uL Baso # (Auto) 0.02 (0.00-0.30) K/uL Abs Immat Gran (auto) 0.05 (0.00-0.30) K/uL Imm/Tot Granulo (auto) 0.7 % Sodium 140 (135-149) mmol/L Potassium 3.5 L (3.6-5.1) mmol/L Chloride 101 (96-114) mmol/L Carbon Dioxide 27 (20-32) mmol/L Anion Gap 12 (7-15) mEq/L BUN 21 (5-24) mg/dL Creatinine 0.9 (0.5-1.5) mg/dL Estimated Creat Clear 107.11 Estimated GFR 114 ml/min Glucose 103 (60-115) mg/dL Calcium 9.8 (8.4-10.6) mg/dL Magnesium 1.9 (1.5-2.6) mg/dL NT-Pro-B Natriuret Pep < 20 pg/mL POC Troponin I 0.00 L (0.01-0.04) ng/ml Imaging Data Chest x-ray: Attestation: I have reviewed the pertinent imaging results. My impression: Normal chest x-ray Radiologist's impression: Findings: No organized consolidation. No pneumothorax. No effusion. Cardiac silhouette is unremarkable. No acute osseous abnormality appreciated. site worker overlies the left chest. Impression: No acute cardiopulmonary process detected. ECG Data Attestation: I personally reviewed and interpreted this ECG as follows: Prior ECG tracings: available for review (Comparison December 27) Interpretation: Normal sinus rhythm, rate 90. No significant ST or T-wave abnormalities. Normal intervals and axis. Good R-wave progression. Normal EKG. Discharge Plan Discharge Clinical Impression: Heart palpitations Patient Disposition: Home, Self-Care Condition: Improved Instructions: Heart Palpitations (ED) Additional Instructions: As we discussed, we did not see any signs of dangerous heart rhythm today. This is good news. I suspect that the palpitations your having are short runs of premature ventricular contractions, often abbreviated as PVCs. Or, this could be an esophageal spasm related to your reflux. We did not see any signs of any abnormal heart rhythms, beets, structural abnormalities, blood work abnormalities while you were in our emergency department. The Holter monitor that you have in place does need to be read with it is correlating device software which is unavailable to us in the emergency department. You will receive a report on this from the ordering provider. This will guide further management. If this condition is in fact PVCs, there is often a correlation with alcohol use, gastric reflux disease, sleep apnea or caffeine intake. Next steps and workup often involve an echo which is an ultrasound of the heart, or a sleep study. Thyroid testing would also be encouraged. It is typically recommended to avoid alcohol and to reduce caffeine to none within 8 hours of bedtime. Sometimes these abnormalities in the heart begin after a viral illness like influenza or COVID. Many of these abnormal heart rhythms do not need any long-term treatment unless they are symptomatic. The medications that can be prescribed to reduce them can sometimes cause more side effects than benefit. I more suspect that your symptoms are related to gastric reflux disease and possibly esophageal spasm. Unfortunately, it is not unusual for someone to still have a lot of symptoms related to this even with taking acid suppressing medications. Additional esophageal pH monitoring and or endoscopy can be considered to look at this more closely. These are all excellent conversations to have with your primary care doctor once her Holter results are available. I would recommend that you schedule an in-person follow-up for that visit so that you may discuss your concerns further. Please let your provider know that your chest x-ray, EKG and basic blood work were all normal in the emergency department. Your monitored for about 90 minutes with no signs of abnormal heart rhythms, PVCs. You had a few short runs of symptoms that were not correlated with anything seen on the monitors. As for the emergency department, we recommend that you come in if you have persistent elevated heart rate above 150 at rest, severe shortness of breath and or exertional symptoms with your palpitations or severe chest pain. Activity Level: No Restrictions Discharge Diet: Regular Prescriptions: No Action omeprazole 20 mg capsule,delayed release(DR/EC) 20 mg PO DAILY Follow Up/Referrals: Provider,Not a Local [Primary Care Provider] - Stand Alone Forms: [employer] Info Instructions
--- OUTSIDE RECORDS SUMMARY | 2023-10-27 01:09 | XMS_ITS | Clinical Summary ---
Author Name Unknown Organization [place] Address [facility] [place] [address] Care Team Providers Care Belt Machine Operator Name Role Phone No Ref-Primary, [...] age to complete this topic Care Teams Belt Machine Operator Relationship Specialty Start Date End Date No Ref-Primary, Physician PCP - General 09/05/19
--- OUTSIDE RECORDS SUMMARY | 2023-10-27 01:09 | XMS_ITS | Referral Summary ---
Author Name Unknown Organization [place] Address [facility] [place] [address] Care Team Providers Care Landscape Horticulture Instructor Name Role Phone No Ref-Primary, Physician Primary [...] of Treatment Not on file Care Teams Landscape Horticulture Instructor Relationship Specialty Start Date End Date No Ref-Primary, Physician PCP - General 09/05/19
[2023-10-27 01:25] LABS: Basophils Absolute Auto 0.02 K/uL (0.00-0.30); Basophils Percent Auto 0.3 % (0.0-3.0); Eosinophils Absolute Auto 0.09 K/uL (0.00-0.50); Eosinophils Percent Auto 1.3 % (0.0-7.0); Hematocrit 45.5 % (37.0-53.0); Hemoglobin* 15.6 gm/dL (13.5-17.5); Immature Granulocytes Abs Auto 0.05 K/uL (0.00-0.30); Immature Granulocytes Pct Auto 0.7 %; Lymphocytes Absolute Auto 2.05 K/uL (0.90-2.90); Lymphocytes Percent Auto 30.7 % (20-44); Mean Corpuscular HGB Conc 34 gm/dL (32-36); Mean Corpuscular Hemoglobin 30 pg (26-34); Mean Corpuscular Volume 88 fL (80-100); Monocytes Percent Auto 7.3 % (0.0-11.0); Neutrophils Absolute Auto 3.97 K/uL (1.7-7.0); Neutrophils Percent Auto 59.7 % (42.0-72.0); Platelet Count* 306 K/uL (140-440); RDW Coefficient of Variation % 11.8 % (11.5-15.5); Red Blood Count 5.18 m/uL (4.30-5.90); White Blood Count* 6.67 K/uL (4.50-11.00)
[2023-10-27 01:28] LABS: Slide Review Reflex No
[2023-10-27 01:37] LABS: Chloride* 101 mmol/L (96-114); Potassium* 3.5 mmol/L (3.6-5.1); Sodium* 140 mmol/L (135-149)
[2023-10-27 01:40] LABS: Carbon Dioxide* 27 mmol/L (20-32); Creatinine* 0.9 mg/dL (0.5-1.5); Est. Creatinine Clearance* 107.11; Estimated Glomerular Filt Rate 114 ml/min
[2023-10-27 01:41] LABS: Anion Gap 12 mEq/L (7-15); Blood Urea Nitrogen* 21 mg/dL (5-24); Calcium* 9.8 mg/dL (8.4-10.6); Glucose* 103 mg/dL (60-115); Magnesium* 1.9 mg/dL (1.5-2.6)
[2023-10-27 01:51] LABS: NT Pro B Type NatriureticPept* < 20 pg/mL
[2023-10-27 01:54] VITALS: PULSE 94
== END 2023-10-27 02:15 | disposition home or self-care (01) ==
PROVIDERS: Emergency Provider Family Medicine
DX: R00.2 Palpitations (principal)
CPT/HCPCS: 36415; 71046; 80048; 83735; 83880; 84484; 85025; 93005; 99284